=== PATIENT | male | born 1975 | race Caucasian/White ===

== ENCOUNTER 2020-06-17 12:49 | Emergency (ER) | payer OTHER, SELFPAY ==
--- NOTE | 2020-06-17 12:55 | ED.SKABFB ---
HPI - Skin/Abscess/Foreign Bdy General Chief complaint: Skin/Abscess/Foreign Body Stated complaint: cyst Source: patient and RN notes reviewed Limitations: no limitations History of Present Illness HPI narrative: The obese patient, on few meds, presents with skin eruption. Patient states he has a 1 week worsening of several year history of cyst on his left upper back. He has had scattered cysts, and this one has become more pink and painful; no fever, discharge, streaking. Symptoms are mild, worse with palpation or compression. He requests incision, knowing in the inflamed state may not able to entirely excise-so patient advised to follow-up with PMD or dermatology. He declines packing, so patient advised to gently probe /keep open the area [with back of a Q-tip]. Related Data Home Medications Medication Instructions Recorded Confirmed glipizide 5 mg PO DAILY 06/17/20 06/17/20 irbesartan-hydrochlorothiazide 1 tablet PO DAILY 06/17/20 06/17/20 nifedipine 60 mg PO DAILY 06/17/20 06/17/20 sertraline 100 mg PO DAILY 06/17/20 06/17/20 Allergies Allergy/AdvReac Type Severity Reaction Status Date / Time No Known Allergies Allergy Verified 06/17/20 13:09 Review of Systems Review of Systems: Narrative: General/Constitutional: No weight loss,fever Eyes: N0: Redness,discharge Ears/Nose/Throat: No: Epistaxis,ear discharge Respiratory: Denies: Hemoptysis Gastrointestinal: No Vomiting, Bleeding-rectal Skin: REPORTS lumps, eruption Neurologic: No Focal Weakness,Sz Hematologic: Denies: Petechiae/Purpura Psychiatric: No: Suicida ideationl All Other Systems: Reviewed and Negative PMFSH Comments At time of signature, agree with nursing past medical, surgical, social and family history. There is no relevant family history pertinent to the presenting complaint Exam Narrative: Exam Narrative: General Appearance: Well nourished/obese, Normocephalic, Conjunctiva clear Mouth/Throat: Normal appearing, Supple Respiratory: Airway patent, No respiratory distress Musculoskeletal: Moves all extremities, Non tender Skin: Warm, Dry; 3 cm, quarter sized inflamed/infected inclusion cyst of the right upper back, off the midline Neurological: A&O x3,normal affect Course Vital Signs Vital signs: Vital Signs Temperature 96.7 F L 06/17/20 12:58 Pulse Rate 98 06/17/20 12:58 Respiratory Rate 20 06/17/20 12:58 Blood Pressure 141/109 H 06/17/20 12:58 Pulse Oximetry 99 06/17/20 12:58 Temperature 96.7 F L 06/17/20 12:58 Pulse Rate 98 06/17/20 12:58 Respiratory Rate 20 06/17/20 12:58 Blood Pressure 141/109 H 06/17/20 12:58 Pulse Oximetry 99 06/17/20 12:58 Procedures Abscess I/D back: Date of Incision: 06/17/20 Side (if applicable): right Local Anesthetic: other anesthetic (Topical EMLA) Amount of anesthesia used (mL): 1 Technique: incised with #11 blade Amount of fluid expressed (mL): 2 Irrigation: No Packing used?: none I&D Results: Pus and Blood Discharge Plan Discharge Clinical Impression: Infected inclusion cyst Patient Disposition: Home, Self-Care Condition: Stable Instructions: Antibiotic Form, Epidermal Inclusion Cysts (ED) Additional Instructions: See PMD or dermatology in follow-up Prescriptions: New tramadol 50 mg tablet 50 mg PO Q6H PRN (Reason: pain) Qty: 15 RF: 0 mupirocin 2 % ointment 1 applic TOPICAL TID Qty: 30 RF: 0 cephalexin 500 mg capsule 500 mg PO TID Qty: 15 RF: 0 No Action sertraline 100 mg Tablet 100 mg PO DAILY RF: 0 glipizide 5 mg Tablet Extended Release 24hr 5 mg PO DAILY RF: 0 irbesartan-hydrochlorothiazide 300-12.5 mg Tablet 1 tablet PO DAILY RF: 0 nifedipine 60 mg Tablet Extended Release 60 mg PO DAILY RF: 0 Follow-up/Referrals: PHYSICIAN,[employer]NAGER [Primary Care Provider] -
[2020-06-17 12:58] VITALS: BP 141/109; PULSE 98; RESP 20; TEMP 35.9; O2SAT 99
[2020-06-17] MEDS: LIDOCAINE/PRILOCAINE CREAM 2.5-2.5% TUBE 1 EACH TOPICAL (13:22)
== END 2020-06-17 13:41 | disposition home or self-care (01) ==
PROVIDERS: Emergency Provider Emergency Medicine
DX: L72.0 Epidermal cyst (principal); I10 Essential (primary) hypertension; E11.9 Type 2 diabetes mellitus without complications; G47.30 Sleep apnea, unspecified
CPT/HCPCS: 10140; 99213; G0463

== ENCOUNTER 2020-10-02 14:39 | Emergency (ER) | payer OTHER, SELFPAY ==
[2020-10-02 14:52] VITALS: BP 175/119; PULSE 89; RESP 16; TEMP 36.4; O2SAT 99
--- NOTE | 2020-10-02 15:22 | ED.GENADULT ---
HPI - General Adult General Chief complaint: Unspecified Stated complaint: NEEDS MEDICINE REFILLS Time Seen by Provider: 10/02/20 15:22 Source: patient Mode of arrival: ambulatory Limitations: no limitations History of Present Illness HPI narrative: javier Denton is a 45 yo male with a PMH of diabetes, hypertension, depression, who comes here for medication refill; has been having difficulty finding a primary care physician to adjust well to take new patients during Covid; nurse gave him referrals at discharge Related Data Home Medications Medication Instructions Recorded Confirmed glipizide 5 mg PO DAILY 06/17/20 10/02/20 irbesartan-hydrochlorothiazide 1 tablet PO DAILY 06/17/20 10/02/20 nifedipine 60 mg PO DAILY 06/17/20 10/02/20 sertraline 100 mg PO DAILY 06/17/20 10/02/20 Allergies Allergy/AdvReac Type Severity Reaction Status Date / Time No Known Allergies Allergy Verified 10/02/20 15:12 Review of Systems Review of Systems: Narrative: CONSTITUTIONAL: Denies fever, chills, sweats. EYES: Denies visual changes, redness, discharge. ENT: Denies rhinorrhea, congestion, sore throat, otalgia. CARDIOVASCULAR: Denies chest pain, palpitations, edema. RESPIRATORY: Denies dyspnea, wheezing, cough GASTROINTESTINAL: Denies abdominal pain, nausea, vomiting, diarrhea. GENITOURINARY: Denies dysuria, hematuria, abnormal discharge SKIN: Denies rash or itching. NEUROLOGIC: Denies numbness, or focal weakness. PSYCHIATRIC: Denies anxiety or depression. Needs medication refills PMFSH Past Medical History Medical History Depression Diabetes HTN (hypertension) Family History Family History Other Depression Diabetes mellitus Heart disease Hypertension Social History Social History (Updated 10/02/20 @ 15:30 by Catrachita Webster CNP) Smoking status: Never smoker Alcohol intake: current Comments At time of signature, I agree with nursing past medical, surgical, social and family history. There is no relevant family history pertinent to the presenting complaint. Exam Narrative: Exam Narrative: GENERAL: This is a well-nourished, well-developed patient, in no distress. HEAD: normocephalic, atraumatic. EYES: Sclera clear/white. Vision is grossly intact. EARS: External ears normal, . Hearing grossly intact. NOSE: External nose normal without nasal discharge, nares without redness, no rhinorrhea. THROAT: Mucous membranes moist, NECK: Neck supple, CARDIOVASCULAR: Regular rate and rhythm without murmurs, gallops, or rubs. RESPIRATORY: Clear to auscultation. Breath sounds equal bilaterally. No wheezes, rales, or rhonchi. GASTROINTESTINAL: Abdomen soft, SKIN: warm, intact with no suspicious lesions or rash, good texture and turgor. NEURO: awake, alert, and oriented to person, place and time. There were no obvious focal neurologic abnormalities. Steady gait EXTREMITIES: Normal range of motion. BACK: Nontender without deformity Course Course Emergency Course: Javier Denton, is here for medication refill for hypertension diabetes and depression Given 2 months of medication for each and referrals for PCP-discussed monitoring of blood sugar and checking hypertension and documenting- BP elevated at this visit Vital Signs Vital signs: Vital Signs Temperature 97.6 F 10/02/20 14:52 Pulse Rate 89 10/02/20 14:52 Respiratory Rate 16 10/02/20 14:52 Blood Pressure 175/119 H 10/02/20 14:52 Pulse Oximetry 99 10/02/20 14:52 Temperature 97.6 F 10/02/20 14:52 Pulse Rate 89 10/02/20 14:52 Respiratory Rate 16 10/02/20 14:52 Blood Pressure 175/119 H 10/02/20 14:52 Pulse Oximetry 99 10/02/20 14:52 Medical Decision Making Differential Diagnosis Differential Diagnosis: Medication refill versus hypertension versus diabetes Vital Signs Vital Signs: Vital Signs Temperature 97.6
== END 2020-10-02 15:38 | disposition home or self-care (01) ==
PROVIDERS: Emergency Provider Nurse Practitioner
DX: Z76.0 Encounter for issue of repeat prescription (principal); E11.9 Type 2 diabetes mellitus without complications; I10 Essential (primary) hypertension; F32.9 Major depressive disorder, single episode, unspecified
CPT/HCPCS: 99211; G0463

== ENCOUNTER 2025-08-01 01:52 | Day surgery (SDC) | payer OTHER, SELFPAY ==
[2025-07-14 15:06] VITALS: BMI 41.2
[2025-08-01 06:15] VITALS: BP 115/79; PULSE 84; RESP 14; TEMP 36.2; O2SAT 96
[2025-08-01] MEDS: LACTATED RINGERS 1,000 ML 150 ML IV CONT (06:30)
--- NOTE | 2025-08-01 07:05 | WPDANESEPPF ---
Anes - Initial Pre Proc Eval Procedure: Operation Date: 08/01/25 07:30 Proposed Procedures p Screening Colonoscopy - Evan England MD Date/Time: 08/01/25 07:05 Surgeon: Evan England MD Pre Op Diagnosis: positive cologuard/screening Patient Data Age: 50 Gender: M Height: 1.83 m Weight: 128.1 kg Last Vital Signs Temp 36.2 C L 08/01/25 06:15 Pulse 84 08/01/25 06:15 Resp 14 08/01/25 06:15 BP 115/79 08/01/25 06:15 Pulse Ox 96 08/01/25 06:15 O2 Del Method Room Air 08/01/25 06:15 Allergies Allergy/AdvReac Type Severity Reaction Status Date / Time No Known Allergies Allergy Verified 08/01/25 06:13 Home Medications ?Medication ?Instructions ?Recorded ?Confirmed ?Type glipizide 5 mg tablet 5 mg PO DAILY #90 tabs 11/25/24 08/01/25 Rx hydrochlorothiazide 25 mg tablet 25 mg PO DAILY #90 tabs 11/25/24 08/01/25 Rx irbesartan 300 mg tablet 300 mg PO DAILY #90 tabs 11/25/24 08/01/25 Rx rosuvastatin 5 mg tablet 5 mg PO QPM #90 tabs 11/25/24 08/01/25 Rx nifedipine 90 mg tablet,extended 90 mg PO DAILY #90 tabs 01/02/25 08/01/25 Rx release metformin 500 mg tablet,extended See Rx Instructions .Route 03/17/25 08/01/25 Rx release 24 hr .COMPLEX #360 tabs tirzepatide 5 mg/0.5 mL 5 mg (0.5 mL) subcut WEEKLY #2 mL 07/14/25 08/01/25 Rx subcutaneous pen injector Laboratory Tests 08/01/25 06:28 POC Capillary Glucose 187 H mg/dl (65-105) Patient hx anesthesia problems: none Family hx anesthesia problems: none Results Review: All pre-operative results and documents have been reviewed as part of the pre-operative evaluation. [facility] Past Medical History Medical History SCOTT (obstructive sleep apnea) ANASTASIA (generalized anxiety disorder) Depression Diabetes HTN (hypertension) Surgical History Surgical History Hx of myringotomy Family History Family History Father Hypertension Mother Diabetes mellitus Hypertension Depression Sibling Diabetes mellitus Depression Social History Social History Smoking status: Never smoker Second hand tobacco smoke exposure: No Alcohol intake: current Drinks per week: 2 Substance use: never Substance use type: does not use Living arrangements: with family Occupation/Education: occupation Gender identity (if verbalized by the patient): Male Sexual Orientation (if Verbalized by the Patient): Straight or Heterosexual Spiritual care concerns: No Anes - Eval Final PreProcedure Day of Procedure 08/01/25 07:05 Patient weight: obese Heart: regular rate and rhythm Lungs: clear to auscultation Airway: Mallampati scale class III Neurological: alert and oriented Last oral intake: >/= 8 hours ASA classification: III Emergent: no Anesthetic plan: proceed Anesthesia type and monitoring: general GIVS and standard monitoring Results Review: All pre-operative results and documents have been reviewed as part of the pre-operative evaluation. Informed Consent: The patient's anesthetic plan and its attendant risks and benefits were discussed with the patient/family/POA. Questions were solicited and answers provided to the satisfaction of the patient/family/POA.
--- NOTE | 2025-08-01 07:29 | PM.HPGS ---
History of Present Illness History of Present Illness Consent: Risks, benefits, and alternatives have been discussed and questions answered. Patient agrees to proceed with procedure. Chief complaint: positive cologuard/screening Narrative: [place] is a 50 year old male here for first colonoscopy because + cologuard Review of Systems Review of Systems: All systems reviewed & are unremarkable except as noted in HPI and below PMFSH Past Medical History Medical History (Updated 08/01/25 @ 07:30 by Evan England MD) Positive colorectal cancer screening using Cologuard test SCOTT (obstructive sleep apnea) ANASTASIA (generalized anxiety disorder) Depression Diabetes HTN (hypertension) Surgical History Surgical History Hx of myringotomy Family History Family History Father Hypertension Mother Diabetes mellitus Hypertension Depression Sibling Diabetes mellitus Depression Social History Social History Smoking status: Never smoker Second hand tobacco smoke exposure: No Alcohol intake: current Drinks per week: 2 Substance use: never Substance use type: does not use Living arrangements: with family Occupation/Education: occupation Gender identity (if verbalized by the patient): Male Sexual Orientation (if Verbalized by the Patient): Straight or Heterosexual Spiritual care concerns: No Meds Home Medications and Allergies Home Medications ?Medication ?Instructions ?Recorded ?Confirmed ?Type glipizide 5 mg tablet 5 mg PO DAILY #90 tabs 11/25/24 08/01/25 Rx hydrochlorothiazide 25 mg tablet 25 mg PO DAILY #90 tabs 11/25/24 08/01/25 Rx irbesartan 300 mg tablet 300 mg PO DAILY #90 tabs 11/25/24 08/01/25 Rx rosuvastatin 5 mg tablet 5 mg PO QPM #90 tabs 11/25/24 08/01/25 Rx nifedipine 90 mg tablet,extended 90 mg PO DAILY #90 tabs 01/02/25 08/01/25 Rx release metformin 500 mg tablet,extended See Rx Instructions .Route 03/17/25 08/01/25 Rx release 24 hr .COMPLEX #360 tabs tirzepatide 5 mg/0.5 mL 5 mg (0.5 mL) subcut WEEKLY #2 mL 07/14/25 08/01/25 Rx subcutaneous pen injector Allergies Allergy/AdvReac Type Severity Reaction Status Date / Time No Known Allergies Allergy Verified 08/01/25 06:13 Vital Signs Vital Signs - 24 hr 08/01/25 06:15 Temperature 97.2 F L Pulse Rate 84 Respiratory Rate 14 Blood Pressure 115/79 Pulse Oximetry 96 Oxygen Delivery Room Air Exam Const: General: comfortable and no acute distress HENMT: Face/Nose/Sinus: Normal nares present Eyes: General: appearance normal, both eyes and all related structures Neck: Neck: no JVD Resp: Auscultation: clear to auscultation bilaterally Cardio: Rate: regular rate Rhythm: regular rhythm GI: Inspection: non-distended GI Palp: Yes Soft to palpation Skin: General skin exam: normal color Psych: Mental Status: mental status grossly normal Assessment and Plan Assessment and plan (1) Positive colorectal cancer screening using Cologuard test: Code(s): R19.5 - Other fecal abnormalities Status: Acute Assessment and Plan: colonoscopy
--- NOTE | 2025-08-01 07:54 | S_PTH ---
PATIENT: [place] LOC: [facility]#:[id number] AGE/SX: 50/M ROOM: RE08/01/[address]: Evan England MD : 1975 BED: DIS: 08/01/2025 SPEC #: [id number] RECD: 08/01/25 09:22 STATUS: BRUNILDA REHernán #: [id number] FERMIN: 08/01/25 07:[address]: Evan England DEPT: [facility] Surgical RECD BY: Beatriz Calderon ENTERED: 08/01/25 09:22 SP TYPE: Surgical OTHR DR: Tino Boone MD Tissues: A - Colon Polypectomy Procedures: Hematoxylin and Eosin Stain Gross and Microscopic Level 4
[2025-08-01 07:57] VITALS: BP 98/62; PULSE 76; RESP 19; O2SAT 93
[2025-08-01 08:07] VITALS: BP 98/64; PULSE 74; RESP 14; O2SAT 94
[2025-08-01 08:17] VITALS: BP 104/67; PULSE 68; RESP 14; O2SAT 96
== END 2025-08-01 08:26 | disposition home or self-care (01) ==
PROVIDERS: PCP Family Medicine; Referring Provider Physician Assistant Medical; Visit Provider Internal Medicine Gastroenterology
PROC: 0DJD8ZZ Inspection of Lower Intestinal Tract, Via Natural or Artificial Opening Endoscopic (ICD-10-PCS; CPT 45378; principal; 2025-08-01 07:30)
DX: R19.5 Other fecal abnormalities (principal); D12.5 Benign neoplasm of sigmoid colon; K57.30 Diverticulosis of large intestine without perforation or abscess without bleeding; E11.9 Type 2 diabetes mellitus without complications; I10 Essential (primary) hypertension; G47.33 Obstructive sleep apnea (adult) (pediatric); F41.9 Anxiety disorder, unspecified; F32.A Depression, unspecified; E66.9 Obesity, unspecified; Z68.38 Body mass index [BMI] 38.0-38.9, adult; Z79.84 Long term (current) use of oral hypoglycemic drugs; Z79.85 Long-term (current) use of injectable non-insulin antidiabetic drugs; Z98.890 Other specified postprocedural states
CPT/HCPCS: 45385; 82948; 88305; J2003; J2704; J7120